=== PATIENT | male | born 1975 | race Hispanic/Latino ===

== ENCOUNTER 2020-08-07 06:37 | Day surgery (SDC) | payer OTHER, MEDICARE ==
[2020-08-07 07:39] LABS: Basophils % (Auto) 0.1 % (0.0-1.8); Eosinophils # (Auto) 0.2 K/mm3 (0.0-0.4); Eosinophils % (Auto) 2.9 % (0.0-4.3); Lymphocytes # (Auto) 1.5 K/mm3 (1.2-5.4); Lymphocytes % (Auto) 23.4 % (13.4-35.0); Mean Corpuscular HGB Conc 35 % (32-34); Mean Corpuscular Volume 90 fl (84-94); Monocytes # (Auto) 0.6 K/mm3 (0.0-0.8); Monocytes % (Auto) 10.1 % (0.0-7.3); Platelet Count 255 K/mm3 (140-440); Red Blood Count 5.11 M/mm3 (3.65-5.03); Red Cell Distribution Width 13.4 % (13.2-15.2)
[2020-08-07 07:49] LABS: INR 0.95 (0.87-1.13)
[2020-08-07 07:50] LABS: BUN/Creatinine Ratio 11; Blood Urea Nitrogen 10 mg/dL (9-20); Calcium 9.1 mg/dL (8.4-10.2); Hemolysis Index 12; Partial Thromboplastin Time 31.4 Sec. (24.2-36.6)
[2020-08-07] MEDS ORDERED: SODIUM CHLORIDE 0.9% 500 ML 500 ML IV SCH (08:00)
[2020-08-07] MEDS ORDERED: HEPARIN/NS 5000 UNIT/500ML 1,000 ML IR ONE (08:38)
[2020-08-07] MEDS ORDERED: ceFAZolin/Water 2 GM/20 ML 2 GM/20 ML SYRINGE IV ONE (08:53)
[2020-08-07] MEDS: MIDAZOLAM 2 MG/2 ML INJ ONE ×6 (09:22→11:13)
[2020-08-07] MEDS: fentaNYL 100 MCG/2 ML INJ ONE ×6 (09:22→11:13)
[2020-08-07] MEDS: LIDOCAINE 1%/EPINEPHRINE 1:100,000 VIAL (20 ML) INFILTRATI ONE ×2 (09:23→09:48)
[2020-08-07] MEDS: HEPARIN 10,000 UNITS/10 ML VIAL ONE ×2 (09:54→10:40)
[2020-08-07] MEDS ORDERED: WATER FOR INJ Sterile (PF) 10 ML ONE (10:17)
[2020-08-07] MEDS ORDERED: ALTEPLASE 2 MG INJ ONE (10:19)
[2020-08-07] MEDS ORDERED: VERAPAMIL 5 MG/2 ML INJ ONE (10:49)
[2020-08-07] MEDS ORDERED: NITROGLYCERIN SYRINGE 3 ML ONE (10:50)
[2020-08-07] MEDS ORDERED: CLOPIDOGREL 300 MG TAB ONE (11:43)
[2020-08-07] MEDS ORDERED: ASPIRIN 81 MG TAB CHEW ONE (11:43)
[2020-08-07] MEDS ORDERED: HYDROmorphone 1 MG/1 ML INJ IV ONE ×2 (11:55→13:05)
--- NOTE | 2020-08-07 11:58 | Short Stay Summary ---
Short Stay Documentation Date of service: 08/07/20 Narrative H&P: 44 year old male with history of thrombus to the right lower extremity status post thrombectomy and angioplasty x 2 with severe residual PVD. Has history of rectal cancer with chronic nonhealing wound. - History Principal diagnosis: RLE rest pain and claudication H&P: obtained from office - Allergies and Medications Current Medications: Allergies butorphanol [From Stadol] Allergy (Verified 08/07/20 07:23) Unknown lorazepam [From Ativan] Allergy (Verified 08/07/20 07:23) Unknown Home Medications Medication Instructions Recorded Confirmed Last Taken Type Apixaban [Eliquis] 5 mg PO BID 08/07/20 08/07/20 08/04/20 History 5 mg Gabapentin [Neurontin] 800 mg PO TID 08/07/20 08/07/20 08/06/20 History 800 mg OXYCODONE hcl [Oxycodone] 15 mg PO Q6H 08/07/20 08/07/20 08/07/20 05:30 History Oxycodone Myristate [Xtampza ER] 27 mg PO Q12H 08/07/20 08/07/20 08/07/20 05:30 History Tamsulosin [Flomax] 0.4 mg PO DAILY 08/07/20 08/07/20 08/07/20 05:30 History cilostazoL [Pletal] 100 mg PO BID 08/07/20 08/07/20 08/04/20 History 100 mg methOCARBAMOL [Robaxin TAB] 750 mg PO HS 08/07/20 08/07/20 08/06/20 History 750 mg traZODone [Desyrel] 100 mg PO HS 08/07/20 08/07/20 08/07/20 History 100 mg Active Medications Sodium Chloride (Nacl 0.9% 500 Ml) 500 mls @ 50 mls/hr IV DIRECT EZEQUIEL Last Admin: 08/07/20 08:46 Dose: 50 mls/hr Documented by: - Physical exam General appearance: no acute distress Lungs: Normal air movement Gastrointestinal: normal Rectal Exam: other (nonhealing wound) Extremities: abnormal (nonpalpable right pedal pulses, palpable left pedal pulses) - Brief post op/procedure progress note Date of procedure: 08/07/20 Pre-op diagnosis: Occlusion of the right distal common femoral artery Post-op diagnosis: same Procedure: 1. Ultrasound guided access of the left common femoral artery 2. Selection of the abdominal aorta with angiography 3. Angioplasty of the left external iliac artery with a 6 mm x 80 mm iNPACT angioplasty balloon 4. Selection of the right external iliac artery and common femoral artery with angiography of the right lower extremity 5. Selection of the right profunda femoral artery 6. Deployment of a 7 mm spider EPD 7. Penumbra indigo 6 Fr CAT thrombectomy primary thrombectomy of the right distal common femoral artery with proximal profunda femoral artery 8. Angioplasty of the right distal common femoral artery and proximal profunda femoral artery with a 6 mm x 100 mm Angiosculpt and 6 mm x 150 mm iNPACT balloon 9. Penumbra aspiration thrombectomy retrieval of the spider EPD and injection of nitroglycerin and verapamil 10. Stenting of the right distal common femoral artery and proximal profunda femoral artery with a 7 mm x 40 mm Everflex 11. Closure of the left common femoral artery with a 6 Fr proglide Anesthesia: local (w/ conscious sedation) Surgeon: FRANKLYN GARCIA Estimated blood loss: minimal Condition: stable - Hospital course Hospital course: Tolerated procedure well. No immediate post procedural complications. Has pain from nonhealing rectal wound, chronic. Mediation provided. - Disposition Condition at discharge: Stable Disposition: [id number] TO HOME OR SELFCARE - Discharge Diagnoses (1) Atherosclerosis of right lower extremity with rest pain Status: Acute (2) Intermittent claudication of both lower extremities due to atherosclerosis Status: Acute Short Stay Discharge Plan Activity: advance as tolerated Weight Bearing Status: Weight Bear as Tolerated (do not lift more than 10 lbs for 1 week) Diet: regular Wound: keep clean and dry, other (avoid getting site wet until healed) Special Instructions: other (start taking eliquis, plavix (clopidogrel), protonix, and cilostazol tomorrow.) Follow up with: PRIMARY MD JERI [Primary Care Provider] - 7 Days
--- NOTE | 2020-08-07 12:13 | Operative Report ---
Operative Report Operative Report: EXAM: 1. Ultrasound guided access of the left common femoral artery 2. Selection of the abdominal aorta with angiography 3. Angioplasty of the left external iliac artery with a 6 mm x 80 mm iNPACT angioplasty balloon 4. Selection of the right external iliac artery and common femoral artery with angiography of the right lower extremity 5. Selection of the right profunda femoral artery 6. Deployment of a 7 mm spider EPD 7. Penumbra indigo 6 Fr CAT thrombectomy primary thrombectomy of the right distal common femoral artery with proximal profunda femoral artery 8. Angioplasty of the right distal common femoral artery and proximal profunda femoral artery with a 6 mm x 100 mm Angiosculpt and 6 mm x 150 mm iNPACT balloon 9. Penumbra aspiration thrombectomy retrieval of the spider EPD and injection of nitroglycerin and verapamil 10. Stenting of the right distal common femoral artery and proximal profunda femoral artery with a 7 mm x 40 mm Everflex 11. Closure of the left common femoral artery with a 6 Fr proglide DATE: 08/07/2020 [employer] NET DEVELOPER: FRANKLYN GARCIA MD INDICATION: Intermittent claudication of the lower extremities with right lower extremity intermittent rest pain. MEDICATIONS: Please see nursing report for full details. DEVICES: 7 mm spider embolic protection device 6 Burmese CAT penumbra aspiration device 6 mm x 100 mm angiosculpt balloon 6 mm x 80 mm iNPACT balloon 6 mm x 150 mm iNPACT balloon 7 mm x 40 mm Everflex stent CONTRAST: Please see Quarter Doper report for full details. PROCEDURE: The risks, benefits, and alternatives were discussed with the patient; written informed consent was obtained. The patient's groins were prepped and draped in a sterile fashion. The left arianna in was evaluated with ultrasound was patent. Under direct ultrasound guidance, the left common femoral artery was accessed with a 21-gauge micropuncture needle. 0.018 inch wire was passed into the aorta. Needle was exchanged for transitional dilator. Wire was exchanged for a 0.035 inch wire. Transitional dilator was exchanged for a 5 Burmese sheath. Digital subtraction angiography was performed demonstrating patency of the left common femoral artery, proximal superficial femoral artery, and profundofemoral artery. The puncture was appropriate, above the bifurcation and below the inferior epigastric artery. Left external iliac artery had a focal 80 to 90% narrowing in the left lower external iliac artery. The abdominal aorta was selected and digital subtraction angiography was perfo rmed demonstrating patency of the infrarenal abdominal aorta, with less than 30% narrowing of the bilateral external iliac arteries, internal iliac arteries, and right external iliac artery. The left external iliac artery was described above. At this point, the patient was heparinized. In order to provide appropriate imaging and sheath positioning, the left external iliac artery lesion would need to be treated and this would also assist with the patient's intermittent claudication. Sheath was upsized to a 6 Burmese sheath. 6 mm x 80 mm angioplasty balloon was used to perform angioplasty of the left lower external iliac artery. Digital subtraction angiography was performed afterwards demonstrating a small [id number] dissection with less than 5% residual narrowing. After this was evaluated, the sheath was then exchanged for a [place] 45 cm [place] destination and positioned in the right distal external iliac artery. Digital subtraction angiography was performed of the right lower extremity demonstrating patency of the proximal portion of the right common femoral artery with occlusion of the distal portion of the vessel, and occlusion of the first 15 cm of the superficial femoral artery and the first 2 cm of the profundofemoral artery. The profundofemoral artery had a large amount of flow in the vessel from collaterals supplying this area and this provides flow into the superficial femoral artery beyond the occlusion and the popliteal artery. There is no high-grade areas of stenosis except for the first 15 cm. There is three-vessel runoff of the popliteal artery, peroneal artery, and anterior and posterior tibial artery with the second 2 vessels being the dominant vessels to the foot. With manipulation, a vertebral catheter was passed into the profundofemoral artery. Digital subtraction angiography was performed demonstrating patency of the profundofemoral artery beyond the proximal occlusion. 7 mm spider embolic protection device was then deployed. Since I was able to manipulate through the occlusion with minimal force I assume there is a component of thrombus remaining. The thrombus was then infused with 4 mg of TPA. After allowing it to dwell, a 6 Burmese penumbra mechanical thrombectomy device was used to perform mechanical thrombectomy multiple times through the distal common femoral artery and into the proximal profundofemoral artery. This resulted in removal of a moderate amount of thrombus. After I thought I had removed as much thrombus as I could remove, I performed angioplasty of the distal common femoral artery and proximal profundofemoral artery with an angioscope 6 mm x 100 mm balloon. Digital subtraction angiography demonstrated a reasonable pathway but debris was noted in the embolic protection device. 6 Burmese penumbra aspiration thrombectomy device was then used to remove much of the thrombus and nitroglycerin was infused. 6 mm x 150 mm iNPACT balloon was then used to perform angioplasty of the right profundofemoral artery and common femoral artery. Since there was more debris in the embolic protection device I then remove the embolic protection device with a penumbra aspiration catheter and infused verapamil. The profundofemoral artery demonstrated minimal residual narrowing. Digital subtraction angiography was repeated, but now there is moderate residual narrowing of the distal common femoral artery. I believe the patient would require a scaffold in order to prevent reocclusion of this area. 0.035 inch Bentson wire was then passed into the profundofemoral artery. 7 mm x 40 mm Everflex stent was then deployed across the proximal profunda femoral artery into the distal common femoral artery. Digital subtraction angiography was performed demonstrating prompt flow into the profunda femoral artery with no change in runoff and no distal embolization. The distal common femoral artery was patent. At this time, all wires, catheters, and sheaths were retracted to the left external iliac artery and the site was closed with a 6 Burmese pro glide achieving immediate hemostasis. Patient tolerated the procedure well. No immediate postprocedural complications. FINDINGS: Please see procedure note above IMPRESSION: 1. Successful primary thrombectomy of the right distal common femoral artery and proximal profunda femoral artery. 2. Successful angioplasty and stenting of the right distal common femoral artery and proximal profunda femoral artery. 3. Successful angioplasty of the left external iliac artery.
[2020-08-07 13:58] VITALS: BP 137/69
[2020-08-07] MEDS ORDERED: PANTOPRAZOLE 40 MG TAB PO ONE (14:00)
== END 2020-08-07 14:10 | disposition home or self-care (01) ==
LOC: CATHLABREC 06:37
PROVIDERS: ATTEND Radiology Diagnostic Radiology
DX: I70.213 Atherosclerosis of native arteries of extremities with intermittent claudication, bilateral legs (principal); I70.223 Atherosclerosis of native arteries of extremities with rest pain, bilateral legs; F17.210 Nicotine dependence, cigarettes, uncomplicated; I10 Essential (primary) hypertension; Z85.038 Personal history of other malignant neoplasm of large intestine; Z88.8 Allergy status to other drugs, medicaments and biological substances; Z79.899 Other long term (current) drug therapy; Z98.890 Other specified postprocedural states; Z83.3 Family history of diabetes mellitus; Z80.8 Family history of malignant neoplasm of other organs or systems
CPT/HCPCS: 36415; 37184; 37220; 37226; 75625; 75716; 76937; 80048; 85025; 85610; 85730; 99156; 99157; C1725; C1760; C1769; C1876; C1884; C1887; C1894; C2623; J0690; J1170; J1644; J2250; J2997; J3010; J7040; 75710; Q9967

== ENCOUNTER 2020-08-29 08:00 | Inpatient (IN) | payer OTHER, MEDICARE ==
[2020-08-28 11:01] LABS: Hematocrit 47.1 % (35.5-45.6); Hemoglobin 16.3 gm/dl (11.8-15.2); Mean Corpuscular HGB Conc 35 % (32-34); Mean Corpuscular Volume 92 fl (84-94); Platelet Count 277 K/mm3 (140-440); Red Blood Count 5.15 M/mm3 (3.65-5.03); Red Cell Distribution Width 13.4 % (13.2-15.2)
[2020-08-28 11:12] LABS: BUN/Creatinine Ratio 11; Blood Urea Nitrogen 11 mg/dL (9-20); Calcium 9.7 mg/dL (8.4-10.2); Hemolysis Index 2
--- NOTE | 2020-08-28 11:29 | Anesthesia Consultation ---
Anesthesia Consult and Med Hx Date of service: 08/29/20 - Airway Anesthetic Teeth Evaluation: Poor (multiple chipped and damaged teeth 2/2 chemo) ROM Head & Neck: Adequate Mental/Hyoid Distance: Adequate Mallampati Class: Class I Intubation Access Assessment: Good - Pulmonary Hx Smoking: Yes (1 PPD) Hx Respiratory Symptoms: No - Cardiovascular System Hx Hypertension: Yes (off meds x several months) Hx Heart Attack/AMI: No Hx Percutaneous Transluminal Coronary Angioplasty (PTCA): No Hx Cardia Arrhythmia: No Hx Peripheral Vascular Disease: Yes (+ RLE DVT; anticoagulants held since 08/26. Surgeon's office aware.) - Central Nervous System CVA: No - Gastrointestinal Hx Gastroesophageal Reflux Disease: No - Endocrine Hx Renal Disease: No Hx Liver Disease: No Hx Insulin Dependent Diabetes: No Hx Non-Insulin Dependent Diabetes: No Hx Thyroid Disease: No - Other Systems Hx Alcohol Use: Yes (Occas) Hx Cancer: Yes (hx rectal ca s/p surgery, chemo, radiation) - Additional Comments Anesthesia Medical History Comments: No hx anesthetic complications. Takes oxycodone ER BID scheduled and oxycodone for breakthrough q6h. Instructed to take scheduled long acting oxycodone morning of surgery along with usual dose gabapentin.
[~2020-08-29 08:00] MED LIST: ACETAMINOPHEN 500 MG TAB ONE; ACETAMINOPHEN 500 MG TAB PO SCH; HEPARIN 10,000 UNITS/10 ML VIAL ONE; HYDROmorphone 1 MG/1 ML INJ ONE; LACTATED RINGERS 1,000 ML IV SCH; LACTATED RINGERS 1000 ML IV SOLN ONE; LIDOCAINE MPF (2%) 20 MG/1 ML VIAL 5 ML ONE; MIDAZOLAM 2 MG/2 ML INJ IV NR; MIDAZOLAM 2 MG/2 ML INJ ONE; ROCURONIUM 50 MG/5 ML INJ IV ONE; SCOPOLAMINE TRANSDERMAL PATCH 72 HR TD NR; SCOPOLAMINE TRANSDERMAL PATCH 72 HR TD ONE; SODIUM CHLORIDE 0.9% 1000 ML 1,000 ML ONE; SODIUM CHLORIDE 0.9% 500 ML 0 ML ONE; ceFAZolin/STERILE WATER 2 GM/20 ML SYRINGE IV ONE; ceFAZolin/Water 2 GM/20 ML 2 GM/20 ML SYRINGE IV NR; propofoL 200 MG/20 ML VIAL IV ONE
[2020-08-29] MEDS ORDERED: BUPIVACAINE/PF (0.5%) 5 MG/1 ML 30 ML VIAL INFILTRATI ONE ×2 (09:18→13:09)
[2020-08-29] MEDS ORDERED: SODIUM CHLORIDE 0.9% IRR 1,500 ML BOTTLE IR ONE ×2 (09:30)
[2020-08-29] MEDS ORDERED: HEPARIN 10,000 UNITS/10 ML VIAL IR ONE (09:30)
[2020-08-29] MEDS ORDERED: SODIUM CHLORIDE 0.9% 1000 ML IV SOLN IR ONE (09:30)
[2020-08-29] MEDS ORDERED: ROCURONIUM 50 MG/5 ML INJ IV ONE (09:47)
[2020-08-29] MEDS ORDERED: SODIUM CHLORIDE 0.9% 1000 ML 1,000 ML ONE ×3 (10:03→13:47)
[2020-08-29] MEDS ORDERED: ePHEDrine SULFATE 50 MG/1 ML INJ ONE (11:08)
[2020-08-29] MEDS ORDERED: HEPARIN 10,000 UNITS/10 ML VIAL ONE (11:54)
[2020-08-29] MEDS ORDERED: SODIUM CHLORIDE 0.9% 100 ML ONE (13:08)
[2020-08-29] MEDS ORDERED: SODIUM CHLORIDE 0.9% 100 ML IVPB IV ONE (13:09)
[2020-08-29] MEDS ORDERED: ceFAZolin 1 GM VIAL ONE (13:27)
[2020-08-29] MEDS ORDERED: GLYCOPYRROLATE 0.4 MG/2 ML INJ ONE (13:29)
[2020-08-29] MEDS ORDERED: NEOSTIGMINE 10MG/10 ML INJ MDV ONE (13:29)
[2020-08-29] MEDS ORDERED: ONDANSETRON 4 MG/2 ML INJ ONE (13:32)
[2020-08-29] MEDS ORDERED: KETOROLAC 30 MG/1 ML INJ ONE (13:33)
[2020-08-29] MEDS ORDERED: HYDROmorphone 1 MG/1 ML INJ ONE ×2 (14:27→15:04)
[2020-08-29] MEDS ORDERED: ACETAMINOPHEN 325 MG TAB PO PRN (17:19)
[2020-08-29] MEDS ORDERED: ONDANSETRON 4 MG/2 ML INJ IV PRN (17:19)
[2020-08-29] MEDS ORDERED: HYDROcodone/ACETAMINOPHEN 5-325 MG TAB PO PRN (17:19)
[2020-08-29] MEDS ORDERED: NALOXONE 0.4 MG/1 ML INJ IV PRN (17:19)
--- NOTE | 2020-08-29 17:31 | Post Operative Note ---
Date of procedure: 08/29/20 Pre-op diagnosis: Hypercoagulability with Right Lower Extremity Ischemia Post-op diagnosis: same Procedure: 1. Excision of Right Common Femoral and Profunda Self-Expanding Stent 2. Open Thrombectomy of Right Profunda With 3 Kanwal 3. Right Common Femoral and Profunda Thromboendarterectomy And Patch Angioplasty of Profunda Artery with Right Greater Saphenous Vein Patch 4. Right Common Femoral Artery to Mid Superficial Femoral Artery Bypass with Reverse Right Greater Saphenous Vein Graft Anesthesia: GETA Surgeon: PARKER VALENZUELA Estimated blood loss: minimal Pathology: list (Right common femoral and profunda plaque and thrombus) Specimen disposition: to lab Condition: stable Disposition: PACU
--- NOTE | 2020-08-29 17:33 | Operative Report ---
Operative Report Operative Report: Date of Procedure: 08/29/2020 Pre-operative Diagnosis: Hypercoagulability with Right Lower Extremity Ischemia Post-operative Diagnosis: Same Procedure(s): 1. Excision of Right Common Femoral and Profunda Self-Expanding Stent 2. Open Thrombectomy of Right Profunda With 3 Kanwal 3. Right Common Femoral and Profunda Thromboendarterectomy And Patch Angioplasty of Profunda Artery with Right Greater Saphenous Vein Patch 4. Right Common Femoral Artery to Mid Superficial Femoral Artery Bypass with Reverse Right Greater Saphenous Vein Graft Surgeon: Jefferson Campos M.D. Media Executive: None Anesthesia: General Endotracheal Anesthesia EBL: 300 mL Counts: Correct Complications: None Condition: Stable Findings: Stent had eroded through the anterior wall of the profunda artery. Specimen: Right common femoral and profunda plaque and thrombus was sent to pathology. Indication: The patient is a 44-year-old male with a history of hypercoagulability who had an embolus to his right lower extremity in the past. Since that time he has had rest pain in his right leg. He had a known occlusion of his right proximal SFA and profunda artery and was initially treated with an endovascular intervention which included stenting of the common femoral artery and profunda artery. This initially provided him with relief of his pain however the stent thrombosed within days and he had return of his symptoms. It was felt that the best long- term solution was a bypass to resolve his pain. Vein mapping revealed that he had an adequate vein for use for the bypass. He was given the risk, benefits, and alternative procedures and consented to the procedure. Description of Procedure: The patient was brought to the operating room and laid in supine position. After a timeout was performed general endotracheal anesthesia was achieved and his right leg and abdomen were prepped and draped in normal sterile fashion. A longitudinal incision was created in the right groin and carried down to the anterior abdominal wall by sharp dissection. The common femoral artery was identified and dissected circumferentially and controlled with a vessel loop. The dissection was carried along the medial aspect of the common femoral artery until the bifurcation of the profunda artery and SFA was identified. The SFA was dissected circumferentially and controlled with a vessel loop. I began to dissect down to the bifurcation of the profunda artery and noted that the stent had eroded to the anterior wall of the profunda artery. I dissected down to the bifurcation of the profunda artery and dissected each branch circumferentially controlled with Vesseloops. I then dissected the saphenofemoral junction thro ugh this incision. I ligated all side branches with 3-0 silk stick ties and divided the branches. I began to dissect the saphenous vein circumferentially along the length of the vein noting all side branches and suture ligated them and dividing them. I extended the incision along the length of the vein to the mid thigh. I dissected the vein circumferentially, again ligating all side branches with 3-0 silk ties and dividing them. I noted that 1 large side branch would be adequate for a vein patch and I mobilized enough length to ligated distally and used for possible vein patch on the profunda. I divided this and passed it off and stored in heparinized saline until I needed to use it for the past. Once I had mobilized the saphenous vein throughout the entire incision I dissected between the abductor manuel muscle and sartorius muscle and was able to identify the superficial femoral artery in the mid thigh. Interrogation of the artery identified a soft artery with minimal plaque suggesting that it was likely the area identified on CT that was patent. I decided I had enough length of of saphenous vein to complete the bypass. I systemically heparinized the patient with 5000 units of heparin IV and this was redosed with 1000 units of heparin every 45 minutes into the completion of the case. Once the heparin had circulated for 3 minutes I clamped the common femoral artery as well as each branch of the profunda artery with angled DeBakey clamps. I then used an 11 blade and Nunn scissors to make an arteriotomy on the profunda artery, along the anterior surface, where the stent perforated the artery. I then used a curved hemostat to gently pull the stent through the arteriotomy. Once I remove the stent I used a 3 Kanwal to perform a thrombectomy through each branch of the profunda artery. Once there was adequate backbleeding, through each branch, I flushed them with heparinized saline and reclamped each branch. I then harvested one of the ligated branches of the greater saphenous vein and spliced it open. I then used it as a vein patch to close the arteriotomy on the profunda using two 6-0 Prolene's in running fashion. I completed the closure and then created an arteriotomy on the common femoral artery extending from the bifurcation to mid common femoral artery. Upon opening the artery there was bulky plaque as well as thrombus within the artery. I was able to separate the plaque from the arterial wall using a freer elevator. Once I had adequately remove the plaque and thrombus I prepped the saphenous vein on the back table by flushing it with heparinized saline and repairing any areas of leak with 6-0 Prolene in [id number] fashion. I then reversed the vein and beveled the and and then created an end-to-side anastomosis using two 5-0 Prolene's in running fashion. Prior to completing the anastomosis I flashed the branches of the profunda artery and then flushed with heparinized saline and then flashed the inflow of the common femoral artery and then flushed the arteriotomy with heparinized saline. I completed the anastomosis and then clamped the distal end of the saphenous vein and released all clamps to allow flow into the profunda artery. Hemostasis on the anastomosis was achieved with 6-0 Prolene's in interrupted fashion. Once hemostasis was achieved I checked the flow through the graft which had adequate flow. I then clamped the SFA with 2 angled DeBakey clamps and created an arteriotomy using an 11 blade and Nunn scissors. I removed the distal clamp to interrogate the patency of the artery which had exce llent backbleeding. I cut the graft to length and beveled the and created an end-to-side anastomosis using two 5-0 Prolene's in running fashion. Prior to completing the anastomosis I flashed the inflow of the graft as well as flashing the SFA and then flushed the arteriotomy with heparinized saline. I completed the anastomosis and then released all clamps allowing flow through the graft and SFA which had a palpable pulse in the SFA distal to the graft. Hemostasis within the wounds was achieved with a combination of Quick Clot and FloSeal. Once hemostasis was achieved the wound was anesthetized with 0.5% Marcaine and closed in 3 layers using a 3-0 Vicryl running fashion to reapproximate the fascia. 3-0 Vicryl in running fashion in the deep dermal layer and a 4-0 Monocryl in running fashion subcuticular. The wound was then dressed with Dermabond. The patient tolerated the procedure well. All sponge, needle, and instrument counts were correct. The patient was taken to the recovery area in stable condition.
[2020-08-29] MEDS: MORPHINE 4 MG/1 ML INJ IV PRN (18:31)
[2020-08-29] MEDS: SODIUM CHLORIDE 0.9% 1000 ML 1,000 ML IV SCH (18:32)
[2020-08-29] MEDS: oxyCODONE 5 MG TAB PO PRN (20:31)
[2020-08-29] MEDS: oxyCODONE ER 10 MG TAB PO SCH (21:38)
[2020-08-29] MEDS: ceFAZolin/NS 1 GM/50 ML 1 GM/50 ML BAG IV SCH (21:38)
[2020-08-29] MEDS: traZODone 100 MG TAB PO SCH (21:38)
[2020-08-29] MEDS: GABAPENTIN 400 MG CAP PO SCH (21:38)
[2020-08-29] MEDS: APIXABAN 5 MG TAB PO SCH (21:38)
[2020-08-29] MEDS: CILOSTAZOL 100 MG TAB PO SCH (21:38)
[2020-08-29] MEDS: MORPHINE 2 MG/1 ML INJ IV PRN (22:44)
[2020-08-30] MEDS: MORPHINE 2 MG/1 ML INJ IV PRN (02:56)
[2020-08-30] MEDS: oxyCODONE 5 MG TAB PO PRN (05:51)
[2020-08-30] MEDS: ceFAZolin/NS 1 GM/50 ML 1 GM/50 ML BAG IV SCH (05:51)
[2020-08-30 06:55] LABS: Hematocrit 36.7 % (35.5-45.6); Hemoglobin 12.6 gm/dl (11.8-15.2)
[2020-08-30 07:07] LABS: BUN/Creatinine Ratio 13; Blood Urea Nitrogen 10 mg/dL (9-20); Calcium 8.2 mg/dL (8.4-10.2); Hemolysis Index 3
[2020-08-30] MEDS: PANTOPRAZOLE 40 MG TAB PO SCH (07:53)
[2020-08-30] MEDS: MORPHINE 4 MG/1 ML INJ IV PRN ×4 (07:53→19:56)
[2020-08-30] MEDS: GABAPENTIN 400 MG CAP PO SCH ×3 (07:53→19:56)
[2020-08-30] MEDS: SODIUM CHLORIDE 0.9% 1000 ML 1,000 ML IV SCH (07:55)
[2020-08-30] MEDS: TAMSULOSIN 0.4 MG CAP PO SCH (10:19)
[2020-08-30] MEDS: CLOPIDOGREL 75 MG TAB PO SCH (10:19)
[2020-08-30] MEDS: APIXABAN 5 MG TAB PO SCH ×2 (10:19→21:22)
[2020-08-30] MEDS: oxyCODONE ER 10 MG TAB PO SCH ×2 (10:19→21:21)
[2020-08-30] MEDS: CILOSTAZOL 100 MG TAB PO SCH ×2 (10:20→21:22)
--- NOTE | 2020-08-30 12:06 | Progress Note ---
Assessment and Plan The patient is doing well postoperative day #1 from excision of his right femoral stent with thrombectomy of the common femoral artery and profunda artery, patch angioplasty of the profunda artery and bypass of the common femoral artery to the mid SFA with reverse greater saphenous vein graft. 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 His pain is otherwise well controlled. I will transfer him to the telemetry and increase his activity. Once his pain is controlled with ambulation he will be discharged to home. Subjective Date of service: 08/30/20 Principal diagnosis: Postop day #1 status post right common femoral artery to SFA bypass w/vein Interval history: The patient complains of buttock pain which is normal for him given his chronic wound. He has no additional complaints. Objective - Constitutional Vitals: Vital Signs - 12hr 08/30/20 08/30/20 08/30/20 00:30 01:00 01:30 Temperature Pulse Rate 74 74 76 Pulse Rate [ From Monitor] Respiratory 16 14 15 Rate Blood Pressure 146/81 130/64 127/72 O2 Sat by Pulse 94 95 96 Oximetry 08/30/20 08/30/20 08/30/20 02:00 02:30 02:56 Temperature Pulse Rate 72 74 Pulse Rate [ From Monitor] Respiratory 16 14 15 Rate Blood Pressure 130/64 122/79 O2 Sat by Pulse 93 94 Oximetry 08/30/20 08/30/20 08/30/20 03:00 03:30 04:00 Temperature 99.2 F Pulse Rate 75 69 72 Pulse Rate [ 79 From Monitor] Respiratory 14 16 16 Rate Blood Pressure 128/78 128/78 127/68 O2 Sat by Pulse 95 94 93 Oximetry 08/30/20 08/30/20 08/30/20 04:30 04:36 05:00 Temperature Pulse Rate 71 77 Pulse Rate [ From Monitor] Respiratory 21 15 16 Rate Blood Pressure 127/68 131/69 O2 Sat by Pulse 90 91 Oximetry 08/30/20 08/30/20 08/30/20 05:30 05:51 06:00 Temperature 99.0 F Pulse Rate 76 74 Pulse Rate [ From Monitor] Respiratory 14 19 16 Rate Blood Pressure 131/69 135/84 O2 Sat by Pulse 90 93 Oximetry 08/30/20 08/30/20 08/30/20 06:30 07:00 07:30 Temperature Pulse Rate 72 63 67 Pulse Rate [ From Monitor] Respiratory 14 14 23 Rate Blood Pressure 135/84 121/61 121/61 O2 Sat by Pulse 93 96 96 Oximetry 08/30/20 08/30/20 08/30/20 08:00 08:30 08:34 Temperature 97.4 F L Pulse Rate 70 61 Pulse Rate [ From Monitor] Respiratory 8 L 13 Rate Blood Pressure 124/73 124/73 O2 Sat by Pulse 96 98 97 Oximetry 08/30/20 08/30/20 08/30/20 09:00 09:30 10:00 Temperature Pulse Rate 64 66 67 Pulse Rate [ From Monitor] Respiratory 15 11 L 17 Rate Blood Pressure 116/65 116/65 118/66 O2 Sat by Pulse 90 95 94 Oximetry General appearance: Present: no acute distress - Respiratory Respiratory effort: normal - Cardiovascular Rhythm: regular Extremities: no ischemia, pulses intact (2+ dorsalis pedis and posterior tibial pulses on the left, weakly palpable dorsalis pedis and posterior tibial pulses on the right which were confirmed with Doppler signals), normal temperature, abnormal (Right leg incisions are clean dry and intact without evidence of infection or hematoma) - Gastrointestinal General gastrointestinal: Present: soft, non-tender - Labs CBC & Chem 7: 08/30/20 05:55 08/30/20 05:55 Labs: Abnormal lab results 08/30/20 Range/Units 05:55 Glucose 110 H (75-100) mg/dL Calcium 8.2 L D (8.4-10.2) mg/dL Medications & Allergies - Medications Allergies/Adverse Reactions: Allergies butorphanol [From Stadol] Allergy (Verified 08/22/20 15:54) Unknown lorazepam [From Ativan] Allergy (Verified 08/22/20 15:54) Unknown Home Medications: Home Medications Medication Instructions Recorded Confirmed Last Taken Type Apixaban [Eliquis] 5 mg PO BID 08/07/20 08/22/20 08/04/20 History 5 mg Clopidogrel [Plavix] 75 mg PO QDAY #30 tablet 08/07/20 08/22/20 Unknown Rx Gabapentin [Neurontin] 800 mg PO TID 08/07/20 08/22/20 08/06/20 History 800 mg OXYCODONE hcl [Oxycodone] 15 mg PO Q6H 08/07/20 08/22/20 08/07/20 05:30 History Oxycodone Myristate [Xtampza ER] 27 mg PO Q12H 08/07/20 08/22/20 08/07/20 05:30 History Pantoprazole [Protonix] 40 mg PO QDAY #30 tablet 08/07/20 08/22/20 Unknown Rx Tamsulosin [Flomax] 0.4 mg PO DAILY 08/07/20 08/22/20 08/07/20 05:30 History cilostazoL [Pletal] 100 mg PO BID 08/07/20 08/22/20 08/04/20 History 100 mg methOCARBAMOL [Robaxin TAB] 750 mg PO HS 08/07/20 08/22/20 08/06/20 History 750 mg traZODone [Desyrel] 100 mg PO HS 08/07/20 08/22/20 08/07/20 History 100 mg Active Medications: Generic Name Dose Route Start Last Admin Trade Name Freq PRN Reason Stop Dose Admin Acetaminophen 650 mg 08/29/20 17:19 Tylenol PO Q4H PRN Pain MILD(1-3)/Fever >100.5/AJ Hydrocodone Bitart/Acetaminophen 2 each 08/29/20 17:19 08/30/20 04:36 [place] 5/325 PO 2 each Q6H PRN Administration Pain, Moderate (4-6) Apixaban 5 mg 08/29/20 22:00 08/30/20 10:19 Eliquis PO 5 mg Q12HR EZEQUIEL Administration Protocol Cilostazol 100 mg 08/29/20 22:00 08/30/20 10:20 Pletal PO 100 mg BID EZEQUIEL Administration Clopidogrel Bisulfate 75 mg 08/30/20 10:00 08/30/20 10:19 Plavix PO 75 mg QDAY EZEQUIEL Administration Gabapentin 800 mg 08/29/20 20:00 08/30/20 07:53 Gabapentin PO 800 mg TID EZEQUIEL Administration Sodium Chloride 1,000 mls @ 75 mls/hr 08/29/20 17:30 08/30/20 07:55 Nacl 0.9% 1000 Ml IV 75 mls/hr DIRECT EZEQUIEL Administration Methocarbamol 750 mg 08/29/20 22:00 08/29/20 21:38 Robaxin PO 750 mg QHS EZEQUIEL Administration Morphine Sulfate 4 mg 08/29/20 17:19 08/30/20 11:39 Morphine IV 4 mg Q4H PRN Administration Pain , Severe (7-10) Morphine Sulfate 2 mg 08/29/20 17:19 08/30/20 02:56 Morphine IV 2 mg Q4H PRN Administration Pain, Moderate (4-6) Naloxone HCl 0.1 mg 08/29/20 17:19 Naloxone IV Q2MIN PRN Res Rate </= 8 or 02 SAT < 92% Ondansetron HCl 4 mg 08/29/20 17:19 Zofran IV Q8H PRN Nausea And Vomiting Oxycodone HCl 30 mg 08/29/20 22:00 08/30/20 10:19 Oxycontin PO 30 mg Q12HR EZEQUIEL Administration Oxycodone HCl 15 mg 08/29/20 17:25 08/30/20 05:51 Roxicodone PO 15 mg Q6H PRN Administration Pain, Moderate (4-6) Pantoprazole Sodium 40 mg 08/30/20 07:30 08/30/20 07:53 Protonix PO 40 mg QDAC EZEQUIEL Administration Tamsulosin HCl 0.4 mg 08/30/20 10:00 08/30/20 10:19 Flomax PO 0.4 mg QDAY EZEQUIEL Administration Trazodone HCl 100 mg 08/29/20 22:00 08/29/20 21:38 Desyrel PO 100 mg QHS EZEQUIEL Administration
[2020-08-30] MEDS: traZODone 100 MG TAB PO SCH (21:39)
[2020-08-31] MEDS: MORPHINE 4 MG/1 ML INJ IV PRN ×2 (00:16→04:49)
[2020-08-31 05:02] VITALS: BP 135/74
[2020-08-31] MEDS: oxyCODONE 5 MG TAB PO PRN (07:48)
[2020-08-31] MEDS: PANTOPRAZOLE 40 MG TAB PO SCH (07:51)
[2020-08-31] MEDS: GABAPENTIN 400 MG CAP PO SCH (07:51)
--- NOTE | 2020-08-31 10:25 | Discharge Summary ---
Providers - Providers Date of Admission: 08/29/20 18:15 Date of discharge: 08/31/20 Attending physician: PARKER VALENZUELA Primary care physician: ASHLEIGH WILCOX MD Hospitalization Condition: Good Hospital course: Patient with a history of peripheral vascular disease who underwent bypass on his right leg. His incision is clean dry and intact. He is postop day 2. He is able to ambulate up and down the hallway from one end to the other without assistance. His complaints of pain are back at his baseline as he has chronic lower back pain. Disposition: - TO HOME OR SELFCARE Core Measure Documentation - Palliative Care Palliative Care/ Comfort Measures: Not Applicable - Core Measures Any of the following diagnoses?: none Exam - Constitutional Vitals: Temp Pulse Resp BP Pulse Ox 98.9 F 93 H 16 135/74 97 08/31/20 04:34 08/31/20 04:34 08/31/20 04:49 08/31/20 04:34 08/31/20 04:34 General appearance: Present: no acute distress - EENT Eyes: Present: EOM intact ENT: hearing intact - Neck Neck: Present: supple, normal ROM - Respiratory Respiratory effort: normal - Extremities Extremities: abnormal (Postsurgical changes medial right thigh, no significant hematoma, no drainage) - Abdominal General gastrointestinal: Present: deferred Male genitourinary: Present: deferred - Rectal Rectal Exam: deferred - Psychiatric Psychiatric: appropriate mood/affect, cooperative Plan Activity: advance as tolerated Weight Bearing Status: Weight Bear as Tolerated Diet: regular Wound: keep clean and dry, per your surgeon's advice Follow up with: ASHLEIGH WILCOX MD [Primary Care Provider] - 7 Days PARKER VALENZUELA MD [Staff Physician] - 7 Days
[2020-08-31] MEDS: CILOSTAZOL 100 MG TAB PO SCH (10:41)
[2020-08-31] MEDS: CLOPIDOGREL 75 MG TAB PO SCH (10:41)
[2020-08-31] MEDS: APIXABAN 5 MG TAB PO SCH (10:41)
[2020-08-31] MEDS: TAMSULOSIN 0.4 MG CAP PO SCH (10:42)
[2020-08-31] MEDS: oxyCODONE ER 10 MG TAB PO SCH (10:42)
== END 2020-08-31 11:30 | disposition home or self-care (01) | DRG 253 ==
LOC: IMCU 18:15 → 4A 08-30 20:40
PROVIDERS: ADMIT Surgery Vascular Surgery; ATTEND Surgery Vascular Surgery
PROC: 04CK0ZZ Extirpation of Matter from Right Femoral Artery, Open Approach (ICD-10-PCS; principal; 2020-08-29)
PROC: 047K3DZ Dilation of Right Femoral Artery with Intraluminal Device, Percutaneous Approach (ICD-10-PCS; 2020-08-29)
PROC: 041 Lower Arteries, Bypass (ICD-10-PCS; 2020-08-29)
PROC: 06BP0ZZ Excision of Right Saphenous Vein, Open Approach (ICD-10-PCS; 2020-08-29)
DX: I70.228 Atherosclerosis of native arteries of extremities with rest pain, other extremity (principal); D68.59 Other primary thrombophilia; Z20.828 Contact with and (suspected) exposure to other viral communicable diseases; Z79.899 Other long term (current) drug therapy
CPT/HCPCS: 36415; 80048; 85014; 85018; 85027; 86850; 86900; 86901; 88300; 88302; 88304; 88311; G0378; C1757; J0690; J1170; J1644; J1885; J2250; J2270; J2405; J2704; J2710; J7030; J7040; J7120; U0003